=== PATIENT | female | born 1985 | race Caucasian/White ===

== ENCOUNTER 2023-05-05 14:04 | Emergency (ER) | payer OTHER ==
[~2023-05-05] VITALS: Ht 149.9 cm; Wt 66.7 kg
[2023-05-05 16:42] LABS: BASOPHILS # (AUTO) 0.06 K/uL (0.00-0.20); BASOPHILS % (AUTO) 0.7 % (0.0-5.0); EOSINOPHILS # (AUTO) 0.01 K/uL (0.00-0.70); EOSINOPHILS % (AUTO) 0.1 % (0.0-8.0); HEMATOCRIT 46.5 % (36-48); IMMATURE GRANULOCYTE ABSOLUTE 0.01 K/uL (0-1); LYMPHOCYTES # (AUTO) 3.6 K/uL (1.0-4.8); LYMPHOCYTES % (AUTO) 43.3 % (21.0-51.0); MEAN CORPUSCULAR HEMOGLOBIN 32.5 pg (27.0-33.0); MEAN CORPUSCULAR HGB CONC 35.3 g/dL (32.0-36.0); MEAN CORPUSCULAR VOLUME 92.1 fL (79-99); MONOCYTES # (AUTO) 0.4 K/uL (0.1-1.0); NEUTROPHILS # (AUTO) 4.2 K/uL (1.8-7.7); NEUTROPHILS % (AUTO) 50.8 % (40.0-77.0); PLATELET COUNT (AUTO) 212 K/uL (130-400); RED BLOOD CELL COUNT(AUTO) 5.05 MIL/uL (4.00-5.50); RED CELL DISTRIBUTION WIDTH 13.7 % (11.0-15.5); WHITE BLOOD COUNT (AUTO) 8.3 K/uL (4.8-10.8)
[2023-05-05 16:55] LABS: CREATININE 0.7 mg/dL (0.5-1.5); POTASSIUM 3.3 mmol/L (3.5-5.1)
[2023-05-05 17:00] LABS: ALBUMIN 3.5 g/dL (3.5-5.0); BILIRUBIN,TOTAL 0.8 mg/dL (0.2-1.0)
[2023-05-05 17:28] LABS: HCG,QUALITATIVE URINE NEGATIVE (NEGATIVE)
[2023-05-05 17:33] LABS: ALCOHOL, BLOOD 445 mg/dL (0-10)
[2023-05-05 17:33] LABS: AMPHET/METH SCREEN,URINE NEGATIVE (NEGATIVE); BARBITURATE SCREEN, URINE NEGATIVE (NEGATIVE); BENZODIAZEPINES SCREEN,URINE NEGATIVE (NEGATIVE); CANNABINOID SCREEN,URINE NEGATIVE (NEGATIVE); COCAINE SCREEN,URINE NEGATIVE (NEGATIVE); OPIATE SCREEN,URINE NEGATIVE (NEGATIVE); PHENCYCLIDINE SCREEN,URINE NEGATIVE (NEGATIVE)
[2023-05-05] MEDS ORDERED: 0.9%NACL 1000ML 1,000 ML IV ONE (18:00)
[2023-05-05] MEDS ORDERED: M.V.I. 10 ML, FOLIC ACID 1 MG, THIAMINE HCL 100 MG in 0.9%NACL 1000ML IV ONE (18:00)
[2023-05-05] MEDS ORDERED: POTASSIUM BICARB/CIT AC 25 MEQ TABLET.EFF PO ONE (18:30)
[2023-05-06 01:05] VITALS: BP 124/72; PULSE 88; RESP 20; O2SAT 99
[2023-05-06] MEDS ORDERED: CHLORDIAZEPOXIDE HCL 25 MG CAP ONE (01:33)
[2023-05-06] MEDS ORDERED: ONDANSETRON 4MG INJ ONE (01:33)
[2023-05-06] MEDS ORDERED: ONDANSETRON 4MG INJ IVP STA (01:35)
[2023-05-06] MEDS ORDERED: CHLORDIAZEPOXIDE HCL 25 MG CAP PO STA (01:35)
== END 2023-05-06 02:06 | disposition home or self-care (01) ==
LOC: EDH 14:04 → EDBD 14:04 → EDH 05-06 02:06
DX: F10.10 Alcohol abuse, uncomplicated (principal); K92.0 Hematemesis; F41.9 Anxiety disorder, unspecified; F32.A Depression, unspecified
CPT/HCPCS: 99285; 96366; 96365; 80053; 80305; 83690; 85025; 86850; 86900; 86901; 81025; 36415 ×2; 96375; J7030; J3411; J3490; J2405